=== PATIENT | male | born 1985 | race Caucasian/White ===

== ENCOUNTER 2022-04-19 21:24 | Emergency (ER) | payer MEDICAID, SELFPAY ==
[2022-04-19 22:29] VITALS: BP 126/81; PULSE 71; RESP 20; TEMP 36.6; O2SAT 98; BMI 28.0
--- NOTE | 2022-04-19 23:53 | ED_ITS ---
HPI - Extremity Problem General Chief complaint: Extremity Problem Stated complaint: shoulder pain Time Seen by Provider: 04/19/22 23:28 Source: patient Mode of arrival: ambulatory Limitations: no limitations History of Present Illness HPI Narrative: Patient at work pushing a 1000 lb metal cart since then noticed pain in the right shoulder area able to lift his right shoulder without significant pain no other injuries Related Data Previous Rx's Medication Instructions Recorded ibuprofen 600 mg tablet 600 mg PO Q6H PRN pain #30 tabs 04/20/22 Allergies Allergy/AdvReac Type Severity Reaction Status Date / Time No Known Allergies Allergy Unverified 04/19/22 22:33 Review of Systems Review of Systems: Yes all other systems are reviewed and are negative [facility] Social History Social History Advance Directives: No Advance Directives Information Provided: Yes Physical Exam Vital Signs: Vital Signs: Last Vital Signs Temp 97.8 F 04/19/22 22:29 Pulse 71 04/19/22 22:29 Resp 20 04/19/22 22:29 BP 126/81 04/19/22 22:29 Pulse Ox 98 04/19/22 22:29 O2 Del Method 04/19/22 22:29 BMI result Body Mass Index 28.0 Extrem: Shoulder/upper arm images: 1. Diffuse muscular tenderness good range of movements open at sign negative good internal rotation and external rotation without significant pain patient had local tenderness in trapezius area and rotator cuff muscles likely strain neurovascular intact Discharge Plan Discharge Clinical Impression: Tendinitis of right rotator cuff Patient Disposition: Home, Self-Care Instructions: Rotator Cuff Tendinitis (ED) Additional Instructions: Avoid lifting anything heavier than 5 lb from right arm really heal completely Pain medication as prescribed Ice pack Follow with orthopedics if not better Prescriptions: New ibuprofen 600 mg tablet 600 mg PO Q6H PRN (Reason: pain) Qty: 30 0RF Referrals: Greg Guillaume MD [Physician] - 2 weeks Interventions: ED Discharge Assessment Last Done: 04/20/22 00:49 Discharge Date/Time: 04/20/22 00:52
== END 2022-04-20 00:52 | disposition home or self-care (01) ==
PROVIDERS: Emergency Provider Internal Medicine
DX: M65.221 Calcific tendinitis, right upper arm (principal)
CPT/HCPCS: 99282; 99283

== ENCOUNTER 2022-06-09 23:13 | Emergency (ER) | payer MEDICAID, SELFPAY ==
[2022-06-09 23:51] VITALS: BP 121/62; PULSE 56; RESP 16; TEMP 37.2; O2SAT 95; BMI 27.9
[2022-06-10 00:20] LABS: COVID-19 Test Negative (Negative)
--- NOTE | 2022-06-10 00:29 | ED.MEDCLEAR ---
HPI - Medical Clearance General Chief complaint: Medical Clearance Stated complaint: Covid? Time Seen by Provider: 06/10/22 00:29 Source: patient Mode of arrival: ambulatory Limitations: no limitations History of Present Illness HPI Narrative: 36 yo male presents to the ER for a COVID test after he had an exposure to someone who was positive. Related Information Previous Rx's Medication Instructions Recorded ibuprofen 600 mg tablet 600 mg PO Q6H PRN pain #30 tabs 04/20/22 Allergies Allergy/AdvReac Type Severity Reaction Status Date / Time No Known Allergies Allergy Unverified 06/09/22 23:51 Physical Exam Vital Signs: Vital Signs: Last Vital Signs Temp 99 F 06/09/22 23:51 Pulse 56 06/09/22 23:51 Resp 16 06/09/22 23:51 BP 121/62 06/09/22 23:51 Pulse Ox 95 06/09/22 23:51 O2 Del Method 06/09/22 23:51 BMI result Body Mass Index 27.9 MDM - Medical Clearance Lab Data Labs: Lab Results 06/09/22 Range/Units 23:58 COVID-19 (JOSEPHINE) Negative (Negative) COVID-19 Clin Com See Note Discharge Plan Discharge Clinical Impression: Close exposure to COVID-19 virus Patient Disposition: Home, Self-Care Instructions: Covid-19 Viral Syndrome and Novel Coronavirus (ED) Hey/Ath Additional Instructions: You tested NEGATIVE today for COVID-19. Recommend getting at home COVID tests and repeat the test in 2 days. If you develop new or worsening symptoms call 911 or come back to the ER for further evaluation. Prescriptions: No Action ibuprofen 600 mg tablet 600 mg PO Q6H PRN (Reason: pain) Qty: 30 0RF
--- NOTE | 2022-06-10 00:37 | ED_ITS ---
HPI - Medical Clearance General Chief complaint: Medical Clearance Stated complaint: Covid? Time Seen by Provider: 06/10/22 00:29 Source: patient Mode of arrival: ambulatory Limitations: no limitations History of Present Illness HPI Narrative: 36-year-old male came in for evaluation after was exposed to COVID. Patient declined any fever, no chills, no sore throat, no body ache, no headache. Related Information Previous Rx's Medication Instructions Recorded ibuprofen 600 mg tablet 600 mg PO Q6H PRN pain #30 tabs 04/20/22 Allergies Allergy/AdvReac Type Severity Reaction Status Date / Time No Known Allergies Allergy Unverified 06/09/22 23:51 Review of Systems 2 Review of Systems: All other systems are reviewed and are negative Constitutional: Reports as per HPI and Reports no additional constitutional complaints Eyes: Reports as per HPI and Reports no additional eye complaints Reports system reviewed and no additional complaints, except as documented Cardiovascular: Reports as per HPI and Reports no additional cardiovascular complaints Respiratory: Reports as per HPI and Reports no additional respiratory complaints Gastrointestinal: Reports as per HPI and Reports no additional gastrointestinal complaints Genitourinary: Reports no additional female genitourinary complaints Musculoskeletal: Reports no additional musculoskeletal complaints Skin/Breast: Reports system reviewed and no additional complaints, except as docu Psychiatric: Reports no additional psychiatric complaints Endocrine: Reports no additional endocrine complaints Hematologic/Lymphatic: Reports no additional hematologic/lymphatic complaints Allergic/Immunologic: Reports no additional allergic/immunologic complaints Reports system reviewed and no additional complaints, except as documented and Reports Abnormal speech present [facility] Social History Social History Advance Directives: No Advance Directives Information Provided: Yes Physical Exam Vital Signs: Vital Signs: Last Vital Signs Temp 99 F 06/09/22 23:51 Pulse 56 06/09/22 23:51 Resp 16 06/09/22 23:51 BP 121/62 06/09/22 23:51 Pulse Ox 95 06/09/22 23:51 O2 Del Method 06/09/22 23:51 BMI result Body Mass Index 27.9 Vital signs have been reviewed as appeared to be correct. Blood pressure normal. Heart rate normal. Respiration rate normal. Temperature normal. Oxygen saturation normal. Appearance: Alert. Oriented X3. No acute distress. Head: Normal external exam. Normocephalic. Atraumatic. No Long signs noted. No raccoon eyes noted Eyes: PERRLA. EOMI. Conjunctiva and sclera normal. Eyelids normal. ENT: TM's Normal. Pharynx normal. Uvula midline. Moist mucous membranes. No trismus noted. No drooling noted. No muffled voice noted. Neck: Normal inspection. Neck supple. FROM. No adenopathy. Thyroid Normal. No meningeal signs. No neck mass noted. CVS: Normal heart rate and rhythm. Heart sound normal. No murmurs noted. Pulses normal throughout. Respiratory: No respiratory distress. Painless inspiration. Breath sounds normal. No wheezes/rales/rhonchi noted. Chest nontender. No accessory muscle usage noted or decreased air movement noted. Abdomen: Soft and nontender. Bowel sounds normal in all 4 quadrants. No distention noted. No organomegaly noted. No visible injury noted. Back: No CVA tenderness. Full range of motion noted. Skin: Skin warm and dry. Normal skin color. Normal skin turgor. No rashes/lesions/lacerations noted. Extremities: No lower extremity edema. Extremities exhibit normal range of motion. Extremities nontender. Neuro: Oriented X 3. Cranial nerve exam: II-XII are grossly intact No motor deficit. No sensory deficit. Reflexes normal. MDM - Medical Clearance Lab Data Labs: Lab Results 06/09/22 Range/Units 23:58 COVID-19 (JOSEPHINE) Negative (Negative) COVID-19 Clin Com See Note Discharge Plan Discharge Clinical Impression: Close exposure to COVID-19 virus Patient Disposition: Home, Self-Care Instructions: Covid-19 Viral Syndrome and Novel Coronavirus (ED) Hey/Ath Additional Instructions: You tested NEGATIVE today for COVID-19. Recommend getting at home COVID tests and repeat the test in 2 days. If you develop new or worsening symptoms call 911 or come back to the ER for further evaluation. Prescriptions: No Action ibuprofen 600 mg tablet 600 mg PO Q6H PRN (Reason: pain) Qty: 30 0RF
== END 2022-06-10 00:56 | disposition home or self-care (01) ==
PROVIDERS: Emergency Medicine; Emergency Provider Emergency Medicine
DX: Z20.822 Contact with and (suspected) exposure to COVID-19 (principal)
CPT/HCPCS: 87635; 99282; 99283

== ENCOUNTER 2025-02-19 00:42 | Emergency (ER) | payer BC, SELFPAY ==
[2025-02-19 00:52] VITALS: BP 124/77; PULSE 59; RESP 16; TEMP 36.3; O2SAT 98; BMI 30.4
[2025-02-19 01:07] LABS: MANUAL DIFF FLAG NO
[2025-02-19 01:08] LABS: Basophils Percent Auto 0.5 % (0-2); Eosinophils Absolute Auto 0.1 X10*3/uL (0.0-0.4); Hemoglobin 13.1 g/dl (14.0-18.0); Imm Gran Abs Auto 0.01 X10*3/uL (0.00-0.03); Imm Gran Pct Auto 0.2 % (0.0-0.4); Lymphocytes Absolute Auto 2.7 X10*3/uL (1.2-4.9); Lymphocytes Percent Auto 40.8 % (20-40); Mean Corpuscular HGB Conc 33.6 g/dl (31.0-36.0); Mean Corpuscular Hemoglobin 28.1 pg (27.0-33.0); Mean Corpuscular Volume 83.5 fL (80.0-98.0); Mean Platelet Volume 10.5 fL (9.4-12.4); Monocytes Absolute Auto 0.6 X10*3/uL (0.1-1.2); Monocytes Percent Auto 8.5 % (2-11); Neutrophils Absolute Auto 3.2 x10*3/uL (2.0-8.3); Platelet Count 177 X10*3/uL (160-400); Red Blood Count 4.67 X10*6/uL (4.60-5.80); Red Cell Distribution Width 13.3 % (11.0-16.0); White Blood Count 6.6 X10*3/uL (4.8-10.8)
[2025-02-19 01:29] LABS: Alanine Aminotransferase 31 U/L (0-40); Albumin Level 4.3 g/dL (3.5-5.0); Anion Gap 13 (12-20); Aspartate Amino Transferase 36 U/L (5-37); Bilirubin Total 0.3 mg/dL (0.0-1.0); Blood Urea Nitrogen 17 mg/dL (9-16); Calcium 9.2 mg/dL (8.4-10.2); Carbon Dioxide 25 mmol/L (22-29); Chloride 106 mmol/L (96-108); Creatinine Clr Calc Pharmacy 99.6; Estimated Glomerular Filt Rate > 60; Glucose Random 89 mg/dL (60-115); Potassium 3.9 mmol/L (3.3-5.1); Sodium 140 mmol/L (135-145); Total Protein 7.5 g/dL (6.5-8.0)
[2025-02-19 02:19] LABS: Alkaline Phosphatase 46 U/L (39-117)
--- OUTSIDE RECORDS SUMMARY | 2025-02-19 02:30 | XMS_ITS | Clinical Summary ---
Author Organization [employer] Address [address] [place] [address] Care Team Providers Care [id number] Programmer Name Role Phone Unavailable Primary Care Provider Unavailabl e Allergies No known active allergies Encounters Date Type Department Care Team Description 01/19/2025 Telephone [facility] [address] [place] [address] Juan Amor MD 01/05/2025 Telephone [facility] [address], [place] [id number] Juan Amor MD Appointment Request from Last 3 Months Social History Tobacco Use Types Packs/Day Years Used Date Smoking Tobacco: Never Assessed Sex and Gender Information Value Date Recorded Sex Assigned at Male 08/19/2022 10:16 AM EDT Legal Sex Male 10:16 AM EDT Gender Identity Male 08/19/2022 10:16 AM EDT Sexual Orientation Straight 08/19/2022 10 :16 AM EDT Last Filed Vital Signs Vital Sign Reading Time Taken Comments Blood Pressure 130/91 10/07/2022 10:18 AM EST Pulse 72 10/07/2022 10:18 AM EST Temperature 36.7 ??C (98.1 ??F) 10/07/2022 10:[address] Respiratory Rate 16 10/07/2022 10:18 AM EST Oxygen Saturation - - Inhaled Oxygen Concentration - - Weight 83 kg (183 lb) 10/07/2022 10:18 AM EST Height 172.7 cm (5' 8 ) 10/07/2022 10:18 AM EST Body Mass Index 27.83 10/07/2022 10:18 AM EST Plan of Treatment Health Maintenance Due Date Last Done Comments Depression Screening 1987 HIV Screening 1987 Lipid Panel 1987 SDOH Screening 1987 DTaP/Tdap/Td Vaccines (5 - Tdap) 04/04/1999 04/03/1999, 11/20/1992, 10/20/1988, Additional history exists Alcohol/Substance Use Screening 1999 Tobacco Screening 1999 Family Planning (PISQ) 2002 Hepatitis C Screening 2005 COVID-19 Vaccine ( season) 2024 02/18/2022, 03/26/2021, 02/26/2021 Influenza Vaccine (#1) 2024 07/14/2012 Zoster Vaccines (1 of 2) 2037 RSV Patients and Patients Aged 60 years or older (1 - 1-dose 75+ series) 2062 IPV Vaccines Completed 11/20/1992, 10/1988, 05/20/1988, Additional history exists Hepatitis B Vaccines Completed 12/04/2001, 01/07/2000, 12/06/1999 HIB Vaccines Aged Out No longer eligi ble based on patient's age to complete this topic HPV Vaccines Aged Out No longer eligi ble based on patient's age to complete this topic Hepatitis A Vaccines Aged Out No long er eligible based on patient's age to complete this topic Meningococcal Vaccine Aged Out No maye eloisa eligible based on patient's age to complete this topic Pneumococcal Vaccine: Pediatrics (0 to 5 Years) and At-Risk Patients (6 to 49) Years) Aged Out No longer eligible based on patient's age to complete this topic RSV under 20 months Aged Out No longe r eligible based on patient's age to complete this topic Rotavirus Vaccines Aged Out No longer eligible based on patient's age to complete this topic Insurance [facility] C[facility]
== END 2025-02-19 05:42 | disposition left against medical advice (07) ==
PROVIDERS: Emergency Provider Internal Medicine
DX: R51.9 Headache, unspecified (principal); R20.0 Anesthesia of skin; Z53.21 Procedure and treatment not carried out due to patient leaving prior to being seen by health care provider
CPT/HCPCS: 36415; 80053; 85025; 99281

== ENCOUNTER 2025-04-09 00:18 | Emergency (ER) | payer BC, SELFPAY ==
[2025-04-09 00:32] VITALS: BP 114/62; PULSE 52; RESP 18; TEMP 36.6; O2SAT 98; BMI 30.5
--- OUTSIDE RECORDS SUMMARY | 2025-04-09 00:54 | XMS_ITS | Encounter Summary ---
Author Organization [employer] Address [address] [place] [address] Care Team Providers Care Cyber Security Architect Name Role Phone Unavailable Primary Care Provider Unavailabl e Reason for Visit * Reason Comments Med Change Request Encounter Details Date Type Department Care Team (Late st Contact Info) Description 10/07/2022 Refill [facility] [address] [place] [address] Lindsey Alicia MD [address] [place] [address] Upper respiratory infection, viral Social History Tobacco Use Types Packs/Day Years Used Date Smoking Tobacco: Never Assessed Sex and Gender Information Value Date Recorded Sex Assigned at Male 08/19/2022 10:16 AM EDT Legal Sex Male 10:16 AM EDT Gender Identity Male 08/19/2022 10:16 AM EDT Sexual Orientation Straight 08/19/2022 10 :16 AM EDT COVID-19 Exposure Response Date Recorded In the last 10 days, have yo u been in contact with someone who was confirmed or suspected to have Coronavirus/COVID-19? No / Unsure 10/07/2022 9:57 AM EST documented as of this encounter Plan of Treatment Not on file documented as of this encounter Visit Diagnoses Diagnosis Upper respiratory infection, viral documented in this encounter
--- NOTE | 2025-04-09 01:55 | ED_ITS ---
HPI - General Adult General Chief complaint: Eye Problems Stated complaint: facial twitching Time Seen by Provider: 04/09/25 01:54 Source: patient Mode of arrival: ambulatory Limitations: no limitations History of Present Illness ED Provider: Gabriela Rodriguez PA-C HPI narrative: Patient is a 39 year old assigned male at with no reported medical history presenting to the emergency department today with left sided facial twitching and request for STI testing. Patient states that over the last 2 weeks he has had left sided facial twitching which he believes is because of stress and he would like to be screened for STIs while he is here. Patient denies any dizziness, lightheadedness, abdominal pain, nausea, vomiting, fever, chills, blurry vision, double vision, loss of vision, chest pain, difficulty breathing, shortness of breath, back pain, night sweats, pain with urination, increased urinary frequency, increased urinary urgency, blood in his urine or stool, syncope or a near syncopal episode, recent trauma or falls, bowel incontinence, bladder incontinence, or any other complaints at this time. Onset (ago): week(s) (2) Related Data Previous Rx's ?Medication ?Instructions ?Recorded ibuprofen 600 mg tablet 600 mg PO Q6H PRN pain #30 t abs 04/20/22 Allergies Allergy/AdvReac Type Severity Reaction Status Date / Time No Known Allergies Allergy Verified 04/09/25 00:34 Review of Systems 2 Constitutional: Constitutional: Reports no additional constitutional complaints, Denies chills, Denies fever(s) and Denies night sweats Eyes: Eyes: Reports no additional eye complaints, Denies blurry vision, Denies change in vision, Denies diplopia, Denies eye discharge, Denies loss of vision and Denies eye pain ENT: Denies dizziness Comments: left sided facial twitching Cardiovascular: Cardiovascular: Reports no additional cardiovascular complaints, Denies chest pain, Denies lightheadedness, Denies Loss of Consciousness and Denies dyspnea Respiratory: Respiratory: Reports no additional respiratory complaints and Denies dyspnea Gastrointestinal: Gastrointestinal: Reports no additional gastrointestinal complaints, Denies abdominal pain, Denies melena, Denies hematochezia, Denies change in bowel habits and Denies change in stool character Genitourinary: Genitourinary: Reports no additional male genitourinary complaints, Denies hematuria, Denies oliguria, Denies difficulty urinating, Denies dysuria, Denies urinary frequency, Denies urinary hesitancy, Denies urinary incontinence and Denies urinary urgency Musculoskeletal: Musculoskeletal: Reports no additional musculoskeletal complaints, Denies numbness and Denies tingling Neurologic: Denies dizziness, Denies loss of vision, Denies numbness and Denies tingling Psychiatric: Psychiatric: Reports no additional psychiatric complaints Endocrine: Endocrine: Reports no additional endocrine complaints Hematologic/Lymphatic: Hematologic/Lymphatic: Reports no additional hematologic/lymphatic complaints Allergic/Immunologic: Allergic/Immunologic: Reports no additional allergic/immunologic complaints [facility] Past Medical History Attestation statement: The following information was validated with the patient. Source: old records reviewed and nursing notes reviewed Social History Social History Advance Directives: No Advance Directives Information Provided: No Do you have a plan to hurt others: No Plan Physical Exam ED Vital Signs: Vital Signs - 24 hr 04/09/25 00:32 04/09/25 02:17 Temperature 97.8 F 98.0 F Pulse Rate 52 52 Respiratory Rate 18 Blood Pressure 114/62 131/78 Pulse Oximetry 98 100 Oxygen Delivery Method Room Air Room Air BMI result Body Mass Index 30.5 Const General: cooperative, no acute distress, alert and awake Nutritional Appearance: well nourished Orientation/consciousness: patient oriented x3 HENMT Head: Yes normal to inspection and Yes atraumatic Ears: hearing grossly normal bilaterally and external ears normal General nose exam: Normal external nose present, no nasal discharge noted and no epistaxis Face and sinus: Yes normal facial exam, No abrasion and No laceration Mouth: Normal oral and palatal mucosa present, no drooling and no muffled voice Eyes General: appearance normal, both eyes and all related structures Periorbital: periorbital findings normal Eyelids: Yes eyelids normal Conjunctivae: conjunctivae normal Pupils: Equal, round and reactive pupils present EOM: EOMs intact bilaterally Neck Neck: Yes normal visual inspection, Yes full ROM and Yes no lymphadenopathy Resp Effort & Inspection: normal respiratory effort and able to speak in complete sentences Neuro General: patient oriented x3, moves all extremities and CN's II-XI intact bilaterally Cranial nerves: Yes Equal, round and reactive pupils present Cognition (Neuro): normal cognition Extrem General: Yes normal to inspection, Yes full ROM and Yes capillary refill normal Psych Appearance: grossly normal Mental Status: mental status grossly normal Affect: normal affect Attitude: cooperative Thought process: Normal thought process present Thought content: Normal thought content present Insight: Good insight present (Psych) Medical Decision Making Medical Decision Making [facility] Narrative: Patient is a 39 year old assigned male at with no reported medical history presenting to the emergency department today with left sided facial twitching and request for STI testing. Patient's physical exam was unremarkable. Patient's blood work was unremarkable. Patient's STI testing is pending. I explained my physical exam findings as well as all test results to the patient. I answered all questions asked by the patient. Patient had no evidence of facial twitching while in the department today. Patient declined prophylactic STI treatment and stated he would like to wait for his results. I stressed the importance of the patient taking his medication as directed (either prescribed or as the over the counter packaging recommends). I stressed the importance of the patient following up with his primary care provider. I stressed the importance of the patient returning to the emergency department immediately if his symptoms were to worsen or if he were to develop any dizziness, shortness of breath, difficulty breathing, chest pain, blurry vision, loss of vision, nausea, vomiting, abdominal pain, fever, chills, back pain, or any other complaints. Patient verbalized agreement and understanding with this treatment plan and discharge. Differential Diagnosis Differential Diagnoses: The differential diagnosis associated with the presentation includes Facial twitching STI screening Admission/Observation Consideration of admission/observation: Escalation of care including admission/observation considered Patient would have been admitted to the hospital had his work up had any findings where hospital admission was appropriate and his clinical presentation warranted hospital admission. Lab Data [facility] Lab Attestation statement: I reviewed the patient's lab results. My interpretation of these results are in the [facility] Rationale portion of this note. 04/09/25 01:54 04/09/25 01:53 Labs: Lab Results 04/09/25 04/09/25 Range/Units 01:53 01:54 WBC 7.2 (4.8-10.8) X10*3/uL RBC 4.78 (4.60-5.80) X10*6/uL Hgb 13.4 L (14.0-18.0) g/dl Hct 39.5 L (42.0-52.0) % MCV 82.6 (80.0-98.0) fL MCH 28.0 (27.0-33.0) pg MCHC 33.9 (31.0-36.0) g/dl RDW 13.3 (11.0-16.0) % Plt Count 182 (160-400) X10*3/uL MPV 10.1 (9.4-12.4) fL Immature Gran % (Auto) 0.1 (0.0-0.4) % Neut % (Auto) 56.6 (45-73) % Lymph % (Auto) 34.1 (20-40) % [place] % (Auto) 7.7 (2-11) % Eos % (Auto) 1.1 (0-4) % Baso % (Auto) 0.4 (0-2) % Lymph # (Auto) 2.5 (1.2-4.9) X10*3/uL [place] # (Auto) 0.6 (0.1-1.2) X10*3/uL Eos # (Auto) 0.1 (0.0-0.4) X10*3/uL Baso # (Auto) 0.0 (0.0-0.2) X10*3/uL Abs Immat Gran (auto) 0.01 (0.00-0.03) X10*3/uL Absolute Neuts (auto) 4.1 (2.0-8.3) x10*3/uL Absolute Nucleated RBC 0.000 (0.0-0.012) X10*3/uL Nucleated RBC % (auto) 0.0 (0.0-0.2) /100WBC Sodium 140 (135-145) mmol/L Potassium 4.1 (3.3-5.1) mmol/L Chloride 101 (96-108) mmol/L Carbon Dioxide 29 (22-29) mmol/L Anion Gap 14 (12-20) BUN 18 H (9-16) mg/dL Creatinine 1.18 (0.5-1.4) mg/dL Estim Creat Clear Calc 90.9 Estimated GFR > 60 Random Glucose 83 (60-115) mg/dL Calcium 9.5 (8.4-10.2) mg/dL Total Bilirubin 0.6 (0.0-1.0) mg/dL AST 36 (5-37) U/L ALT 26 (0-40) U/L Alkaline Phosphatase 50 (39-117) U/L Total Protein 7.8 (6.5-8.0) g/dL Albumin 4.8 (3.5-5.0) g/dL Discharge Plan Discharge Clinical Impression: Facial twitching, Screening examination for STI Patient Disposition: Home, Self-Care Instructions: Male Condom Use (ED), Safe Sex Practices (ED), Muscle Spasm (ED) Additional Instructions: Follow up with your primary care provider. Return to the emergency department immediately if your symptoms worsen or if you develop any numbness, tingling, dizziness, shortness of breath, difficulty breathing, chest pain, blurry vision, loss of vision, nausea, vomiting, abdominal pain, fever, chills, back pain, or any other complaints. Please see the information below about our Patient Portal. If you are not yet enrolled in the [facility] Patient Portal, you will receive an enrollment email invitation following your visit to any [facility] setting. You may also self-enroll in the Patient Portal by visiting our website: [email or web address] The following information is required to access the Patient Portal: - Your [facility] Medical Record Number - Your personal home email address (must match what is in your electronic medical record, Registration staff can assist with this) - Name - Date of Capabilities of the Patient Portal: - Message some providers - View upcoming appointments - Access your health summary, medical history, and visit history - View current conditions and allergies - View procedure and lab results - View your medications, including guidelines, side effects, and precautions - Complete pre-appointment questionnaires requested by your provider - Ready summary reports of your office visits and procedures To access the Patient Portal Mobile Bibi, follow these directions: - Search [employer] in the Bibi Store or Myla Store - Download the Bibi - Search for [facility] - Enter your login/password Prescriptions: No Action ibuprofen 600 mg tablet 600 mg PO Q6H PRN (Reason: pain) Qty: 30 0RF Referrals: [facility] Family Medicine [Provider Group, Family Practice] Referral Note: Call to establish and follow up with a primary care provider. If you already have a primary care provider, please follow up with them. [facility] Primary Care, [facility] [Provider Group, Internal Medicine] Referral Note: Call to establish and follow up with a primary care provider. If you already have a primary care provider, please follow up with them. [facility] Primary CareEd[facility] [Provider Group, Internal Medicine] Referral Note: Call to establish and follow up with a primary care provider. If you already have a primary care provider, please follow up with them. [facility] Primary Care, [facility] [Provider Group, Primary Care] Referral Note: Call to establish and follow up with a primary care provider. If you already have a primary care provider, please follow up with them. [facility] Referral Note: Call to establish and follow up with a primary care provider. If you already have a primary care provider, please follow up with them. Print Language: [place]
[2025-04-09 01:58] LABS: MANUAL DIFF FLAG NO
[2025-04-09 02:01] LABS: Basophils Percent Auto 0.4 % (0-2); Eosinophils Absolute Auto 0.1 X10*3/uL (0.0-0.4); Eosinophils Percent Auto 1.1 % (0-4); Hematocrit 39.5 % (42.0-52.0); Hemoglobin 13.4 g/dl (14.0-18.0); Imm Gran Abs Auto 0.01 X10*3/uL (0.00-0.03); Imm Gran Pct Auto 0.1 % (0.0-0.4); Lymphocytes Absolute Auto 2.5 X10*3/uL (1.2-4.9); Lymphocytes Percent Auto 34.1 % (20-40); Mean Corpuscular HGB Conc 33.9 g/dl (31.0-36.0); Mean Corpuscular Volume 82.6 fL (80.0-98.0); Mean Platelet Volume 10.1 fL (9.4-12.4); Monocytes Absolute Auto 0.6 X10*3/uL (0.1-1.2); Monocytes Percent Auto 7.7 % (2-11); Neutrophils Absolute Auto 4.1 x10*3/uL (2.0-8.3); Neutrophils Percent Auto 56.6 % (45-73); Platelet Count 182 X10*3/uL (160-400); Red Blood Count 4.78 X10*6/uL (4.60-5.80); Red Cell Distribution Width 13.3 % (11.0-16.0); White Blood Count 7.2 X10*3/uL (4.8-10.8)
[2025-04-09 02:16] LABS: Alanine Aminotransferase 26 U/L (0-40); Albumin Level 4.8 g/dL (3.5-5.0); Alkaline Phosphatase 50 U/L (39-117); Anion Gap 14 (12-20); Aspartate Amino Transferase 36 U/L (5-37); Bilirubin Total 0.6 mg/dL (0.0-1.0); Blood Urea Nitrogen 18 mg/dL (9-16); Calcium 9.5 mg/dL (8.4-10.2); Carbon Dioxide 29 mmol/L (22-29); Chloride 101 mmol/L (96-108); Creatinine Clr Calc Pharmacy 90.9; Estimated Glomerular Filt Rate > 60; Glucose Random 83 mg/dL (60-115); Potassium 4.1 mmol/L (3.3-5.1); Sodium 140 mmol/L (135-145); Total Protein 7.8 g/dL (6.5-8.0)
[2025-04-09 02:17] VITALS: BP 131/78; PULSE 52; TEMP 36.7; O2SAT 100
--- NOTE | 2025-04-09 02:17 | MHC.EDTECH ---
02:[address] Ng by PCR given to patient for a dirty catch. Instructed to press call carmen once completed and this tech will come back and send it to the lab.
[2025-04-09 03:14] VITALS: BP 131/78; PULSE 52; RESP 18; TEMP 36.7; O2SAT 100
[2025-04-09 11:54] LABS: CT PCR NOT DETECTED (Not Detect.); NG PCR NOT DETECTED (Not Detect.)
== END 2025-04-09 03:15 | disposition home or self-care (01) ==
PROVIDERS: Physician Assistant Medical; Emergency Provider Emergency Medicine Emergency Medical Services
DX: R25.3 Fasciculation (principal); Z20.2 Contact with and (suspected) exposure to infections with a predominantly sexual mode of transmission
CPT/HCPCS: 36415; 80053; 85025; 87491; 87591; 99283

== ENCOUNTER 2025-05-01 19:52 | Emergency (ER) | payer BC, SELFPAY ==
[2025-05-01 20:00] VITALS: BP 115/80; PULSE 54; RESP 16; TEMP 36.2; O2SAT 99; BMI 29.2
--- NOTE | 2025-05-01 20:03 | ED_ITS ---
HPI - General Adult General Chief complaint: Extremity Injury, Upper Stated complaint: right shoulder pain /shooting front & back pain Time Seen by Provider: 05/01/25 20:12 Source: patient Limitations: no limitations History of Present Illness HPI narrative: 39-year-old male presents right upper back pain. Patient states he was working out with 25 lb dumbbells 3 days ago. Pain started at this time. It stems behind the right scapula radiates down his right arm. Denies any previous injury. He is right-hand dominant. Denies any direct trauma. He does have shooting pain. No paralysis. He is otherwise feeling well. He took over -the-counter pain medication with minimal relief. Related Data Previous Rx's ?Medication ?Instructions ?Recorded ibuprofen 600 mg tablet 600 mg PO Q6H PRN pain #30 t abs 04/20/22 ibuprofen 600 mg tablet 600 mg PO Q6H PRN pain #20 t abs 05/01/25 lidocaine 5 % topical patch 1 patch topical DAILY PRN pain #15 05/01/25 ea methocarbamol 750 mg tablet 750 mg PO TID PRN muscle s pasm #20 05/01/25 tabs Allergies Allergy/AdvReac Type Severity Reaction Status Date / Time No Known Allergies Allergy Verified 05/01/25 20:03 Review of Systems Constitutional: Constitutional: Denies chills and Denies fever(s) Musculoskeletal: Musculoskeletal: Denies back pain, Denies muscle weakness and Denies numbness Neurologic: Denies focal weakness and Denies numbness Psychiatric: Psychiatric: Denies depression [facility] Social History Social History Advance Directives: No Advance Directives Information Provided: No Do you have a plan to hurt others: No Plan Physical Exam ED Vital Signs: Vital Signs - 24 hr 05/01/25 20:00 Temperature 97.2 F Pulse Rate 54 Respiratory Rate 16 Blood Pressure 115/80 Pulse Oximetry 99 Oxygen Delivery Method Room Air BMI result Body Mass Index 29.2 Const General: cooperative, alert and awake Extrem Other: Burning Machine Operator is 5/5 bilaterally. Full range of motion of all joints. Negative empty can test. There is mild tenderness along the right subscapular muscles. There was moderate spasms of the right trapezius muscles. Radial pulses are +2 and equal bilaterally. Medical Decision Making Medical Decision Making MDM Narrative: 39-year-old male with right arm pains with associated spasm. No focal deficits on exam. No direct injury to suggest indication for imaging. Trial of lidocaine patches, Robaxin and ibuprofen. Patient agrees with this current plan. He expresses understanding of all discharge instructions has no further questions at this time. Differential Diagnosis Differential Diagnoses: The differential diagnosis associated with the presentation includes Cervical spasm Nerve impingement Disc herniation Muscle strain Prescription Management I considered prescription management with: Pain Medication Discharge Plan Discharge Clinical Impression: Right shoulder strain, Cervical paraspinous muscle spasm Patient Disposition: Home, Self-Care Instructions: Muscle Strain (ED) Additional Instructions: Rest. Avoid strenuous activity. Warm compresses to the affected area. Robaxin as directed for pain and muscle spasm. Ibuprofen as directed for pain. Take with food. Lidocaine patches to the affected area. Orthopedic referral needed. Follow-up with your primary care provider. Call this week to schedule a follow- up appointment. Return to the emergency department if you have any worsening of symptoms, or any concerns. Get well soon! Prescriptions: New ibuprofen 600 mg tablet 600 mg PO Q6H PRN (Reason: pain) Qty: 20 0RF methocarbamol 750 mg tablet 750 mg PO TID PRN (Reason: muscle spasm) Qty: 20 0RF lidocaine 5 % adhesive patch,medicated 1 patch topical DAILY PRN (Reason: pain) Qty: 15 0RF Rx Instructions: leave on most painful area for up to 12 hrs No Action ibuprofen 600 mg tablet 600 mg PO Q6H PRN (Reason: pain) Qty: 30 0RF Print Language: Kiswahili
[2025-05-01 20:41] VITALS: BP 115/80; PULSE 54; RESP 16; TEMP 36.2; O2SAT 99
== END 2025-05-01 20:41 | disposition home or self-care (01) ==
PROVIDERS: Emergency Provider Emergency Medicine
DX: S46.911A Strain of unspecified muscle, fascia and tendon at shoulder and upper arm level, right arm, initial encounter (principal); M54.50 Low back pain, unspecified; M79.601 Pain in right arm; M62.838 Other muscle spasm; X50.3XXA Overexertion from repetitive movements, initial encounter; X50.1XXA Overexertion from prolonged static or awkward postures, initial encounter; Y93.B3 Activity, free weights; Y92.89 Other specified places as the place of occurrence of the external cause; Y99.8 Other external cause status
CPT/HCPCS: 99283

== ENCOUNTER 2025-10-02 00:41 | Emergency (ER) | payer MEDICAID, SELFPAY ==
[2025-10-02 01:13] VITALS: BP 129/62; PULSE 83; RESP 20; TEMP 36.4; O2SAT 96; BMI 27.4
[2025-10-02 01:44] LABS: Hematocrit 43.3 % (42.0-52.0); Hemoglobin 14.3 g/dl (14.0-18.0); Imm Gran Abs Auto 0.02 X10*3/uL (0.00-0.03); Imm Gran Pct Auto 0.2 % (0.0-0.4); Lymphocytes Absolute Auto 2.1 X10*3/uL (1.2-4.9); MANUAL DIFF FLAG NO; Mean Corpuscular HGB Conc 33.0 g/dl (31.0-36.0); Mean Corpuscular Hemoglobin 27.7 pg (27.0-33.0); Mean Corpuscular Volume 83.9 fL (80.0-98.0); NRBC Abs Auto 0.000 X10*3/uL (0.0-0.012); NRBC Pct Auto 0.0 /100WBC (0.0-0.2); Platelet Count 209 X10*3/uL (160-400); Red Blood Count 5.16 X10*6/uL (4.60-5.80); White Blood Count 9.4 X10*3/uL (4.8-10.8)
[2025-10-02 01:58] LABS: Alanine Aminotransferase 30 U/L (0-40); Albumin Level 5.2 g/dL (3.5-5.0); Alkaline Phosphatase 56 U/L (39-117); Anion Gap 14 (12-20); Aspartate Amino Transferase 29 U/L (5-37); Blood Urea Nitrogen 16 mg/dL (9-16); Calcium 10.0 mg/dL (8.4-10.2); Carbon Dioxide 28 mmol/L (22-29); Chloride 104 mmol/L (96-108); Creatinine Clr Calc Pharmacy 87.3; Estimated Glomerular Filt Rate > 60; Potassium 4.4 mmol/L (3.3-5.1); Sodium 142 mmol/L (135-145); Total Protein 8.4 g/dL (6.5-8.0)
--- OUTSIDE RECORDS SUMMARY | 2025-10-02 02:58 | XMS_ITS | Clinical Summary ---
Author Organization [employer] Address [address] [place] [address] Care Team Providers Care Signal Operator Technical Name Role Phone Unavailable Primary Care Provider Unavailabl e Allergies No known active allergies Social History Tobacco Use Types Packs/Day Years [...] 74 10/07/2022 10:18 AM EST Temperature 36.7 C (98.1 F) 10/07/2022 10:18 AM EST Respiratory Rate 16 10/07/2022 10:18 AM EST Oxygen Saturation - - Inhaled Oxygen Concentration - - Weight 83 kg (183 lb) 10/07/2022 10:18 AM EST Height 172.7 cm (5' 8 ) 10/07/2022 10:18 AM EST Body Mass Index 27.83 10/07/2022 10:18 AM EST Plan of Treatment Upcoming Encounters Date Type Department Care Team (Late st Contact Info) Description 10/12/2025 10:30 AM EST Office Visit [facility] [address] [place] [address] Ruthann Toure NP [address] [place], [place] [id number] Health Maintenance Due Date Last Done Comments Depression Screening 1987 HIV Screening 1987 Lipid Panel 1987 SDOH Screening 1987 Disability Screening 1987 DTaP/Tdap/Td Vaccines (5 - Tdap) 04/04/1999 04/03/1999, 11/20/1992, 10/20/1988, Additional history exists Alcohol/Substance Use Screening 1999 Tobacco Screening 1999 Family Planning (PISQ) 2002 HPV Vaccines (1 - Male 3-dose series) 2002 Hepatitis C Screening 2005 COVID-19 Vaccine ( season) 2025 02/18/2022, 03/26/2021, 02/26/2021 Influenza Vaccine (#1) 2025 07/14/2012 Zoster Vaccines (1 of 2) 2037 [...] patient's age to complete this topic Meningococcal B Vaccine Aged Out No l onger eligible based on patient's age to complete this topic Meningococcal Vaccine Aged Out No maye eloisa eligible based on patient's age to complete this topic Pneumococcal Vaccine: Pediatrics (0 to 5 Years) and At-Risk Patients (6 to 49) Years Aged Out No longer eligible based on patient's age to complete this topic RSV under 20 months Aged Out No longe r eligible based on patient's age to complete this topic Rotavirus Vaccines Aged Out No longer eligible based on patient's age to complete this topic Insurance [facility] C3
--- OUTSIDE RECORDS SUMMARY | 2025-10-02 02:58 | XMS_ITS | Encounter Summary ---
Author Organization [employer] Address [address] [facility] [address] [address] [place] [address] Care Team Providers Care Sand Blaster Name Role Phone Unavailable Primary Care Provider Unavailabl e Reason for Visit * Reason Comments Med Change Request Encounter Details Date Type Department Care Team (Late st Contact Info) Description 10/07/2022 Refill [facility] [address] [place] [address] Lindsey Alicia MD [address], [place] [phone] Upper respiratory infection, viral Social History Tobacco [...] as of this encounter Plan of Treatment Upcoming Encounters Date Type Department Care Team (Late st Contact Info) Description 10/12/2025 10:30 AM EST Office Visit [facility] [address] [place] [address] Ruthann Toure NP [address] [place] [address] documented as of this encounter Visit Diagnoses Diagnosis Upper respiratory infection, viral documented in this encounter
[2025-10-02 03:10] VITALS: BP 124/84; PULSE 68; RESP 18; TEMP 36.6; O2SAT 97
[2025-10-02 03:58] LABS: Appearance Urine Cloudy; Glucose Urine UA Negative (Negative); PH 5.5 (5.0-9.0); Specific Gravity - Urine 1.020 (1.005-1.025)
--- NOTE | 2025-10-02 04:38 | ED.GENADULT ---
HPI - General Adult General Chief complaint: General Medical Stated complaint: Gen Med Time Seen by Provider: 10/02/25 04:09 Source: patient Mode of arrival: ambulatory Limitations: no limitations History of Present Illness ED Provider: Dr. Keena Calloway HPI narrative: 39-year-old male with no known medical problems presents with 3 days of right-sided arm and upper back pain that began suddenly while he was sleeping. Pain sometimes starts in the shoulder and radiates down the arm; worsened by movement but also present at rest. Patient currently prefers standing due to discomfort. Denies dropping objects; uncertain about weakness but able to use hand normally. Additional symptoms: intermittent ?brain fog,? decreased appetite (eating less than usual though still feels hunger), prior fever 4-5 days ago now resolved, and reports foamy urine. Denies cough, falls, trauma, strenuous activity, or deep inspiratory pain. Took one dose of acetaminophen (~2 days ago) with minimal relief. No daily medications, no known drug allergies. Related Data Previous Rx's ?Medication ?Instructions ?Recorded ibuprofen 600 mg tablet 600 mg PO Q6H PRN pain #30 tabs 04/20/22 ibuprofen 600 mg tablet 600 mg PO Q6H PRN pain #20 tabs 05/01/25 lidocaine 5 % topical patch 1 patch topical DAILY PRN pain #15 05/01/25 ea methocarbamol 750 mg tablet 750 mg PO TID PRN muscle spasm #20 05/01/25 tabs cyclobenzaprine 10 mg tablet 10 mg PO TID #10 tabs 10/02/25 ibuprofen 600 mg tablet 600 mg PO Q8H PRN fever or pain 10/02/25 #30 tabs Allergies Allergy/AdvReac Type Severity Reaction Status Date / Time No Known Allergies Allergy Verified 10/02/25 01:15 Review of Systems Review of Systems: as per HPI, full review of systems performed and negative but for the above mentioned pertinent positives and negatives. [facility] Social History Social History Smoked in Last 30 Days: No Use of substances other than those prescribed or required for medical reasons: No Advance Directives: No Advance Directives Information Provided: No Do you have a plan to hurt others: No Plan Physical Exam ED Exam Exam: GENERAL: Well-Appearing, conversant, no acute distress. SKIN: Normal skin color for ethnicity, warm, dry, no rashes noted. HEENT:? Normocephalic, atraumatic, no stridor, posterior oropharynx nonerythematous, dentition intact, EOMI. NECK: Soft, supple, full ROM, midline structures nontender, no step-offs, no deformities, no lymphadenopathy. CHEST: Heart regular rate and rhythm, no murmurs, symmetric chest rise and fall. PULMONARY: Clear to auscultation bilaterally, no labored breathing, no wheezes/rhales/rhonchi. ABDOMINAL: Soft, nondistended, nontender, positive bowel sounds in all quadrants. : Deferred. MUSCULOSKELETAL: Normal tone, full range of motion, no deformities, no peripheral edema, right trapezius/shoulder region noted to be tight; tenderness/spasm appreciated. Full hand motor testing intact: able to make ?OK? sign, fully extend wrist, and spread fingers. Radial, median, and ulnar nerve function intact bilaterally.. NEURO: Alert and oriented x3, CN II through XII intact, equal strength and sensation bilateral upper and lower extremities, no focal neurologic deficits.? PSYCHIATRIC: Normal affect, fluid speech, good eye contact and appropriate demeanor. Vital Signs: Vital Signs - 24 hr 10/02/25 01:13 10/02/25 03:10 Temperature 97.5 F 97.8 F Pulse Rate 83 68 Respiratory Rate 20 18 Blood Pressure 129/62 124/84 Pulse Oximetry 96 97 Oxygen Delivery Method Room Air Room Air BMI result Body Mass Index 27.4 Medications Administered Discontinued Medications Generic Name Dose Route Start Last Admin Trade Name Freq PRN Reason Stop Dose Admin Diazepam 2 mg 10/02/25 05:29 10/02/25 05:42 Diazepam 2 Mg Tablet PO 10/02/25 05:30 2 mg ONCE ONE Administration Ibuprofen 600 mg 10/02/25 05:29 10/02/25 05:42 Ibuprofen 600 Mg Tablet PO 10/02/25 05:30 600 mg ONCE ONE Administration Medical Decision Making Medical Decision Making [facility] Narrative: 39-year-old male with right shoulder/upper-back pain likely secondary to muscle strain/spasm, mild constitutional symptoms, and concern for foamy urine. Differential diagnosis includes UTI, fracture, soft tissue contusion, ligamentous injury, tendon injury, infection, laceration, among others. Patient is neurovascularly intact upon arrival to the emergency department. Based on physical exam, appropriate imaging was ordered. Problem #1: Right shoulder/upper back muscle strain with spasm Assessment: Acute onset pain without traumatic trigger; exam demonstrates trapezius tightness and intact peripheral nerve function. Plan: Prescribed muscle relaxant (dispensed first dose in ED); advised may cause drowsiness ? avoid driving. NSAID therapy: ibuprofen recommended for pain and inflammation. Return precautions: return to ED if pain worsens, new weakness develops, or fever recurs. Problem #2: Foamy urine Assessment: Patient-reported foamy urine. Etiology unclear. Plan: Urinalysis sent ? await results. Instructed to return if urinary changes worsen or other concerning symptoms develop. Follow-up: PRN return to ED for any worsening symptoms, new fever, or concerns as above. Differential Diagnosis Differential Diagnoses: The differential diagnosis associated with the presentation includes (as abbove) Lab Data MDM Lab Attestation statement: I reviewed the patient's lab results. 10/02/25 01:38 10/02/25 01:38 Labs: Lab Results 10/02/25 10/02/25 Range/Units 01:38 03:50 WBC 9.4 (4.8-10.8) X10*3/uL RBC 5.16 (4.60-5.80) X10*6/uL Hgb 14.3 (14.0-18.0) g/dl Hct 43.3 (42.0-52.0) % MCV 83.9 (80.0-98.0) fL MCH 27.7 (27.0-33.0) pg MCHC 33.0 (31.0-36.0) g/dl RDW 13.1 (11.0-16.0) % Plt Count 209 (160-400) X10*3/uL MPV 10.8 (9.4-12.4) fL Immature Gran % (Auto) 0.2 (0.0-0.4) % Neut % (Auto) 72.3 (45-73) % Lymph % (Auto) 22.0 (20-40) % [place] % (Auto) 4.6 (2-11) % Eos % (Auto) 0.6 (0-4) % Baso % (Auto) 0.3 (0-2) % Lymph # (Auto) 2.1 (1.2-4.9) X10*3/uL [place] # (Auto) 0.4 (0.1-1.2) X10*3/uL Eos # (Auto) 0.1 (0.0-0.4) X10*3/uL Baso # (Auto) 0.0 (0.0-0.2) X10*3/uL Abs Immat Gran (auto) 0.02 (0.00-0.03) X10*3/uL Absolute Neuts (auto) 6.8 (2.0-8.3) x10*3/uL Absolute Nucleated RBC 0.000 (0.0-0.012) X10*3/uL Nucleated RBC % (auto) 0.0 (0.0-0.2) /100WBC Sodium 142 (135-145) mmol/L Potassium 4.4 (3.3-5.1) mmol/L Chloride 104 (96-108) mmol/L Carbon Dioxide 28 (22-29) mmol/L Anion Gap 14 (12-20) BUN 16 (9-16) mg/dL Creatinine 1.12 (0.5-1.4) mg/dL Estim Creat Clear Calc 87.3 Estimated GFR > 60 Random Glucose 96 (60-115) mg/dL Calcium 10.0 (8.4-10.2) mg/dL Total Bilirubin 0.4 (0.0-1.0) mg/dL AST 29 (5-37) U/L ALT 30 (0-40) U/L Alkaline Phosphatase 56 (39-117) U/L Total Protein 8.4 H (6.5-8.0) g/dL Albumin 5.2 H (3.5-5.0) g/dL Urine Color Yellow Urine Appearance Cloudy Urine pH 5.5 (5.0-9.0) Ur Specific [place] 1.020 (1.005-1.025) Urine Protein Negative (Neg-Trace) mg/dL Urine Glucose (UA) Negative (Negative) mg/dL Urine Ketones 15 (Negative) mg/dL Urine Blood Negative (Negative) Urine Nitrite Negative (Negative) Ur Leukocyte Esterase Negative (Negative) Urine RBC 0-2 (0-2) /HPF Urine WBC 0-5 (0-5) /HPF Ur Squamous Epith Cells 0-2 (0-2) /HPF Urine Bacteria None Seen (None Seen) Hyaline Casts 0-2 (0-2) /LPF Urine Opiates Screen Not Detected (Not Detect) Ur Buprenorphine Scrn Not Detected (Not Detect) ng/mL Ur Oxycodone Screen Not Detected (Not Detect) ng/mL Urine Methadone Screen Not Detected (Not Detect) ng/mL Urine Fentanyl Screen Not Detected (Not Detect) Ur Barbiturates Screen Not Detected (Not Detect) Ur Phencyclidine Scrn Not Detected (Not Detect) Ur Amphetamines Screen Not Detected (Not Detect) U Benzodiazepines Scrn Not Detected (Not Detect) Urine Cocaine Screen Not Detected (Not Detect) U Marijuana (THC) Screen Not Detected (Not Detect) External Record Review External record reviewed: Inpatient record Prescription Management I considered prescription management with: Pain Medication Social Determinants Patient?s care significantly limited by Social Determinants of Health including: Other Social Determinant of Health Discharge Plan Discharge Clinical Impression: Muscle strain of right shoulder, Cervical radicular pain Patient Disposition: Home, Self-Care Instructions: Muscle Strain (ED), Cervical Radiculopathy (ED) Additional Instructions: Use muscle relaxers as needed for pain and muscle soreness. Do not take these medications if you are driving. They can make you drowsy. Return to the ER with any new or worsening symptoms including: Senior Administrator Support strength weakness, fevers greater than 100?, worsening pain despite medication, any new symptom that concerns you. Call 911 with any medical emergency. Follow up with your primary care doctor as soon as possible. If you do not have a primary care physician, please call the [facility] at [phone] to establish a new primary care physician. While waiting to establish a new primary care physician, you can call our [facility] at [phone] for non-emergency needs. Prescriptions: New cyclobenzaprine 10 mg tablet 10 mg PO TID Qty: 10 0RF ibuprofen 600 mg tablet 600 mg PO Q8H PRN (Reason: fever or pain) Qty: 30 0RF No Action ibuprofen 600 mg tablet 600 mg PO Q6H PRN (Reason: pain) Qty: 30 0RF ibuprofen 600 mg tablet 600 mg PO Q6H PRN (Reason: pain) Qty: 20 0RF methocarbamol 750 mg tablet 750 mg PO TID PRN (Reason: muscle spasm) Qty: 20 0RF lidocaine 5 % adhesive patch,medicated 1 patch topical DAILY PRN (Reason: pain) Qty: 15 0RF Rx Instructions: leave on most painful area for up to 12 hrs Interventions: ED Discharge Assessment Last Done: 10/02/25 05:48 Discharge Date/Time: 10/02/25 05:52 Print Language: Italian
[2025-10-02 04:57] LABS: Cannabinoid Screen Urine Not Detected (Not Detect)
[2025-10-02 05:48] VITALS: BP 127/81; PULSE 57; RESP 18; TEMP 36.6; O2SAT 98
== END 2025-10-02 05:52 | disposition home or self-care (01) ==
PROVIDERS: Emergency Provider Emergency Medicine
DX: S46.911A Strain of unspecified muscle, fascia and tendon at shoulder and upper arm level, right arm, initial encounter (principal); M54.12 Radiculopathy, cervical region; X50.9XXA Other and unspecified overexertion or strenuous movements or postures, initial encounter; Y93.84 Activity, sleeping; Y92.003 Bedroom of unspecified non-institutional (private) residence as the place of occurrence of the external cause; Y99.9 Unspecified external cause status; Z79.899 Other long term (current) drug therapy
CPT/HCPCS: 36415; 80053; 80307; 81001; 85025; 99284